=== PATIENT | female | born 1955 | race Caucasian/White ===

== ENCOUNTER 2025-01-11 11:43 | Outpatient (CLI) | payer MEDICARE ==
[~2025-01-11 11:43] MED LIST: Iopamidol 370 76% 100 ML VIAL ONE
[2025-01-11 13:02] LABS: Estimated GFR - POC 54.0
== END 2025-01-11 11:44 | disposition home or self-care (01) ==
LOC: CT 11:43
PROVIDERS: ATTEND Internal Medicine Gastroenterology
DX: R19.4 Change in bowel habit (principal); R19.7 Diarrhea, unspecified; K76.89 Other specified diseases of liver; K44.9 Diaphragmatic hernia without obstruction or gangrene; K57.30 Diverticulosis of large intestine without perforation or abscess without bleeding
CPT/HCPCS: 36415; 74178; 82565